=== PATIENT | male | born 1945 | race Caucasian/White ===

== ENCOUNTER 2022-01-12 20:53 | Inpatient (IN) | payer MEDICARE, BC ==
[~2022-01-12] VITALS: Ht 167.6 cm; Wt 98.9 kg
[2022-01-12 22:09] LABS: MEAN CORPUSCULAR HEMOGLOBIN 31.6 uug (23.8-33.4); MEAN CORPUSCULAR VOLUME 94.6 fL (73.0-96.2); PLATELET COUNT (AUTO) 306 K/uL (152-348)
[2022-01-12 22:25] LABS: CARBON DIOXIDE 22 mmol/L (21-32); CHLORIDE 102 mmol/L (98-107); CREATININE 1.6 mg/dL (0.6-1.3); GLUCOSE 141 mg/dL (74-106); POTASSIUM 3.9 mmol/L (3.5-5.1); UREA NITROGEN, BLOOD 38 mg/dL (7-18)
[2022-01-12 22:30] LABS: ALANINE AMINOTRANSFERASE 24 U/L (16-63); ALKALINE PHOSPHATASE 66 U/L (50-136); ASPARTATE AMINOTRANSFERASE 6 U/L (15-37); BILIRUBIN,DIRECT 0.1 mg/dL (0.0-0.2); BILIRUBIN,TOTAL 0.3 mg/dL (0.2-1.0)
[2022-01-13] MEDS ORDERED: ALLO100T PO (00:23)
[2022-01-13] MEDS ORDERED: ERGO400C PO (00:23)
[2022-01-13] MEDS ORDERED: BICA50TA49 PO (00:23)
[2022-01-13] MEDS ORDERED: METH1TAB69 PO (00:23)
[2022-01-13] MEDS ORDERED: OXYB5TAB16 PO (00:23)
[2022-01-13] MEDS ORDERED: TAMS-3 PO (00:23)
[2022-01-13] MEDS ORDERED: PIPERACILLIN SODIUM/TAZOBACTAM 3.375 G in IV DEXTROSE 5% 50 ML IV ONE (01:30)
[2022-01-13] MEDS ORDERED: IV NS 1000 ML 1,000 ML IV ONE (01:30)
[2022-01-13] MEDS ORDERED: PIPERACILLIN/TAZOBACTAM/D5W 50 ML IV ONE (01:35)
[2022-01-13 01:47] LABS: HEMATOCRIT 31.5 % (36.7-47.1)
--- NOTE | 2022-01-13 02:20 | NUR ---
Called [facility] for panel call
[2022-01-13] MEDS: IV NORMAL SALINE 1,000 ML IV SCH ×4 (02:30→21:59)
[2022-01-13] MEDS ORDERED: PANTOPRAZOLE SODIUM IV 40 MG in IV DEXTROSE 5% 100 ML IV SCH (02:30)
[2022-01-13] MEDS ORDERED: ACETAMINOPHEN 325 MG TABLET PO PRN (02:30)
[2022-01-13] MEDS ORDERED: MORPHINE SULFATE 2 MG/1 ML DISP.SYRIN IV PRN (02:30)
[2022-01-13] MEDS ORDERED: ONDANSETRON 4 MG/2 ML VIAL IV PRN (02:30)
[2022-01-13] MEDS ORDERED: hydrALAZINE HCL 20 MG/1 ML VIAL IV PRN (02:30)
--- NOTE | 2022-01-13 02:30 | NUR ---
Patient has been accepted by Dr Curtis
--- NOTE | 2022-01-13 02:31 | NUR ---
Called for bed. Spoke with Colby RN - charge nurse. Patient will be transfered to TELE room 309
--- NOTE | 2022-01-13 03:20 | NUR ---
report given to Kristen BURNETT
--- NOTE | 2022-01-13 03:50 | NUR ---
Pt. admitted to TELE room 309 , under care of Dr. Curtis Belongs List completed Kristen RN aware of patient's arrival
[2022-01-13] MEDS ORDERED: VANCOMYCIN IV 2,000 MG in IV DEXTROSE 5% 500 ML IV ONE (04:00)
[2022-01-13 04:04] VITALS: BP 125/55
[2022-01-13] MEDS: CEFEPIME HCL 1 G in IV DEXTROSE 5% 50 ML IV SCH ×3 (05:29→21:58)
--- NOTE | 2022-01-13 05:33 | NUR ---
Patient admission to room 309 per zion with diagnosis Syncope and rectal bleeding, history of prostate cancer, COPD, AAOX4, no sob, no c/o pain noted, skin intact, call light within easy reach. will continue to monitor.
[2022-01-13] MEDS ORDERED: OXYB10TA4 PO (06:02)
[2022-01-13] MEDS ORDERED: VANCOMYCIN 1000 MG VIAL ONE (06:05)
[2022-01-13] MEDS ORDERED: CEFEPIME HCL 1 G VIAL ONE (06:06)
[2022-01-13] MEDS ORDERED: PANTOPRAZOLE SODIUM 40 MG VIAL ONE (06:06)
[2022-01-13 07:17] LABS: HEMATOCRIT 28.2 % (36.7-47.1)
[2022-01-13] MEDS: OXYBUTYNIN XL 5 MG TABSR PO SCH ×2 (09:00→09:01)
[2022-01-13] MEDS ORDERED: TAMSULOSIN HCL 0.4 MG CAP.SR.24H PO SCH (09:00)
[2022-01-13] MEDS: BICALUTAMIDE 50 MG TABLET PO SCH ×2 (09:00→09:02)
[2022-01-13] MEDS ORDERED: OXYBUTYNIN CHLORIDE 5 MG TABLET PO SCH (09:00)
[2022-01-13] MEDS: CHOLECALCIFEROL 400 UNITS TABLET PO SCH ×2 (09:00→09:02)
[2022-01-13] MEDS ORDERED: VANCOMYCIN IV 1,000 MG in IV DEXTROSE 5% 250 ML IV SCH (09:00)
[2022-01-13] MEDS: ALLOPURINOL 100 MG TABLET PO SCH ×2 (09:00→09:02)
[2022-01-13] MEDS: PANTOPRAZOLE SODIUM 40 MG VIAL IV SCH (09:02)
--- NOTE | 2022-01-13 09:05 | NUR ---
Received patient sleeping in bed. patient is NPO status. Therefore, PO meds weren't administered. No pain, no distress were verbalized by the patient. Will continue to monitor.
[2022-01-13 11:50] LABS: HEMATOCRIT 27.9 % (36.7-47.1)
[2022-01-13 11:52] VITALS: BP 112/52
--- NOTE | 2022-01-13 12:59 | NUR ---
Patient is on clear liquids now by Dr Girma Becerra. Patient just had a BM and it was all bloody again.
[2022-01-13 13:40] LABS: HEMATOCRIT 27.9 % (36.7-47.1); MEAN CORPUSCULAR HEMOGLOBIN 31.6 uug (23.8-33.4); MEAN CORPUSCULAR VOLUME 95.2 fL (73.0-96.2); PLATELET COUNT (AUTO) 219 K/uL (152-348)
[2022-01-13 16:25] VITALS: BP 147/57
[2022-01-13 19:35] LABS: HEMATOCRIT 27.4 % (36.7-47.1)
[2022-01-13 20:00] VITALS: BP 111/57
[2022-01-13] MEDS ORDERED: MELATONIN 3 MG TABLET PO PRN ×2 (21:15→21:30)
[2022-01-13] MEDS: TAMSULOSIN HCL 0.4 MG CAP.SR.24H PO SCH (21:54)
[2022-01-14 00:02] VITALS: BP 108/51
[2022-01-14 01:26] LABS: *BILIRUBIN,URIN NEGATIVE (NEGATIVE); *BLOOD, URINE NEGATIVE (NEGATIVE); *CLARITY,URINE CLEAR (CLEAR); *COLOR,URINE LIGHT YELLOW (YELLOW); *KETONES,URINE NEGATIVE (NEGATIVE); *UROBILINOGEN,URINE 0.2 E.U./dl (NORMAL); LEUKOCYTE ESTERASE ,URINE NEGATIVE (NEGATIVE); NITRITE, URINE NEGATIVE (NEGATIVE); PH,URINE 5.5 (5.0-8.0); UGLUCOSE NEGATIVE (NEGATIVE)
[2022-01-14 04:00] VITALS: BP 112/60
[2022-01-14] MEDS: CEFEPIME HCL 1 G in IV DEXTROSE 5% 50 ML IV SCH ×3 (05:54→21:12)
[2022-01-14 06:48] LABS: MEAN CORPUSCULAR HEMOGLOBIN 32.3 uug (23.8-33.4); MEAN CORPUSCULAR VOLUME 94.7 fL (73.0-96.2); PLATELET COUNT (AUTO) 200 K/uL (152-348)
[2022-01-14 07:04] LABS: BILIRUBIN,TOTAL 0.5 mg/dL (0.2-1.0); CREATININE 1.2 mg/dL (0.6-1.3); PHOSPHOROUS 3.5 mg/dL (2.5-4.9); POTASSIUM 4.2 mmol/L (3.5-5.1); TOTAL PROTEIN, SERUM 6.2 g/dL (6.4-8.2); VANCOMYCIN,RANDOM 7.6 ug/mL (18.0-26.0)
[2022-01-14] MEDS: IV NORMAL SALINE 1,000 ML IV SCH ×2 (08:38→18:04)
[2022-01-14] MEDS: ALLOPURINOL 100 MG TABLET PO SCH (08:40)
[2022-01-14] MEDS: CHOLECALCIFEROL 400 UNITS TABLET PO SCH (08:40)
[2022-01-14] MEDS: OXYBUTYNIN XL 5 MG TABSR PO SCH (08:40)
[2022-01-14] MEDS: BICALUTAMIDE 50 MG TABLET PO SCH (08:42)
[2022-01-14] MEDS: PANTOPRAZOLE SODIUM 40 MG VIAL IV SCH (08:43)
[2022-01-14] MEDS ORDERED: VANCOMYCIN IV 1,500 MG in IV DEXTROSE 5% 500 ML IV SCH (09:00)
[2022-01-14 11:15] LABS: HEMATOCRIT 24.7 % (36.7-47.1)
[2022-01-14] MEDS: METRONIDAZOLE 500 MG/NS 100ML 500 MG in PREMIXED 1 EACH IV SCH ×2 (11:30→18:04)
[2022-01-14 12:02] VITALS: BP 121/67
[2022-01-14] MEDS ORDERED: GOLYTELY 4000 ML BOTTLE PO ONE (13:30)
[2022-01-14 15:47] VITALS: BP 121/59
--- NOTE | 2022-01-14 16:08 | NUR ---
patient did not have bloody stool today. Dr Fields ordered colonoscopy tomorrow. however patient son said that per dr benitez colonoscopy is not good at this time due to acute diverticulitis, son wanted this senior writer to clarify and not to do colonoscopy tomorrow. dr fields made aware about son request, dr fields cancelled the procedure for tomorrow. dr benitez aware as well.
--- NOTE | 2022-01-14 18:26 | NUR ---
patient had bloody stool x1. no acute distress noted
--- NOTE | 2022-01-14 19:27 | NUR ---
SON REFUSED TO HAVE COLONOSCOPY AT THIS TIME
[2022-01-14 20:00] VITALS: BP 124/59
[2022-01-14] MEDS: TAMSULOSIN HCL 0.4 MG CAP.SR.24H PO SCH (21:15)
[2022-01-15] MEDS: METRONIDAZOLE 500 MG/NS 100ML 500 MG in PREMIXED 1 EACH IV SCH (02:58)
[2022-01-15 04:00] VITALS: BP 110/50
[2022-01-15] MEDS: IV NORMAL SALINE 1,000 ML IV SCH (04:30)
[2022-01-15 04:53] LABS: HEMATOCRIT 25.1 % (36.7-47.1); MEAN CORPUSCULAR HEMOGLOBIN 32.1 uug (23.8-33.4); MEAN CORPUSCULAR VOLUME 94.4 fL (73.0-96.2); PLATELET COUNT (AUTO) 188 K/uL (152-348)
[2022-01-15 04:58] LABS: CARBON DIOXIDE 26 mmol/L (21-32); CHLORIDE 105 mmol/L (98-107); CREATININE 1.2 mg/dL (0.6-1.3); GLUCOSE 118 mg/dL (74-106); POTASSIUM 3.8 mmol/L (3.5-5.1); UREA NITROGEN, BLOOD 15 mg/dL (7-18)
[2022-01-15] MEDS: CEFEPIME HCL 1 G in IV DEXTROSE 5% 50 ML IV SCH (05:21)
--- NOTE | 2022-01-15 06:53 | NUR ---
pt rested well in between care; BM x1 brownish and mucoid small in amount; assisted to meet hygiene needs; continue to monitor;; continue plan of care.
[2022-01-15] MEDS: ALLOPURINOL 100 MG TABLET PO SCH (09:28)
[2022-01-15] MEDS: CHOLECALCIFEROL 400 UNITS TABLET PO SCH (09:28)
[2022-01-15] MEDS: PANTOPRAZOLE SODIUM 40 MG VIAL IV SCH (09:28)
[2022-01-15] MEDS: OXYBUTYNIN XL 5 MG TABSR PO SCH (09:28)
[2022-01-15] MEDS: BICALUTAMIDE 50 MG TABLET PO SCH (09:37)
[2022-01-15 10:43] LABS: HEMATOCRIT 25.4 % (36.7-47.1)
--- NOTE | 2022-01-15 11:45 | NUR ---
PATIENT HAS ORDER FOR DISCHARGE AND HIS IV IS POSITIONAL IV PUMP IS BEEPING ASKED THE DOCTOR IF MIDLINE SHOULD BE INSERTED TO CONTINUE THE IV ORDERED BUT MD STATED TO JUST DISCONTINUE THE IVF AND THE IV ANTIBIOTICS BECAUSE HE CHANGED IT TO ORAL AND NOTED.
[2022-01-15 11:57] VITALS: BP 137/67
--- NOTE | 2022-01-15 13:30 | NUR ---
PER THE EYE CLINIC MANAGER STATED THAT PATIENTS SON DOES NOT WANT [facility] HAS OTHER PREFERENCES SO THE EYE CLINIC MANAGER IS CURRENTLY SENDING INQUIRIES TO THESE SNF TO SEE IF THEY HAVE A BED AVAILABLE.
--- NOTE | 2022-01-15 14:06 | NUR ---
CALLED DR LAUREEN VIRAMONTES SINCE PATIENT IS NOT SET TO LEAVE AND HIS IV IS NOT FUNCTIONAL WHAT HE WANTED ME TO DO WITH HIS CURRENT ORDER FOR IV ATB AND HE STATED TO DISCONTINUE TO IV ATB AND START THE ORAL ATB HE ORDERED FOR HIS DISCHARGE AND NOTED.
[2022-01-15] MEDS ORDERED: METRONIDAZOLE 500 MG TABLET PO SCH (14:30)
[2022-01-15] MEDS ORDERED: CIPROFLOXACIN HCL 250 MG TABLET PO SCH (15:00)
--- NOTE | 2022-01-15 15:15 | NUR ---
PATIENTS SON BISHNU HERE AND STATED THAT HE WILL PREFER TO TAKE PATIENT HOME INSTEAD OF THE DETENTION TRAIN CALLER AWARE WILL CALL DR GARDUNO FOR OUT PATIENT PRESCRIPTIONS TO PATIENT OWN PHARMACY.
[2022-01-15 15:48] VITALS: BP 136/64
--- NOTE | 2022-01-15 17:45 | NUR ---
CALLED THE [facility]Y INSTRUCTED BY PATIENTS SON AND ORDERED HIS MEDICATION SPOKE WITH SHREYAS.
--- NOTE | 2022-01-15 18:00 | NUR ---
PATIENT DISCHARGED PICKED UP BY HIS SON BISHNU AND HE WAS INSTRUCTED TO CONTINUE WITH CLEAR LIQUIDS DIET ORDERED AND FOLLOW UP WITH HIS PRIMARY DOCTOR FOR COLONOSCOPY OUT PATIENT AND TO HAMMER SMITH PATIENTS ANTIBIOTICS AND PROTONIX AT THE [facility] AND HE EXPRESSED [id number]
[2022-01-16] MEDS ORDERED: PANTOPRAZOLE SODIUM 40 MG TABLET.DR PO SCH (07:00)
== END 2022-01-15 17:55 | DRG 377 ==
LOC: ER 20:59 → TELE3 01-13 02:25 → MEDSURG3 01-14 10:30
DX: K57.33 Diverticulitis of large intestine without perforation or abscess with bleeding (principal); N17.0 Acute kidney failure with tubular necrosis; I95.1 Orthostatic hypotension; C61 Malignant neoplasm of prostate; E88.09 Other disorders of plasma-protein metabolism, not elsewhere classified; Z90.5 Acquired absence of kidney; J44.9 Chronic obstructive pulmonary disease, unspecified; Z20.822 Contact with and (suspected) exposure to COVID-19; Z87.442 Personal history of urinary calculi; Z92.3 Personal history of irradiation; D63.8 Anemia in other chronic diseases classified elsewhere; D50.9 Iron deficiency anemia, unspecified
CPT/HCPCS: 36415; 70450; 71045; 83605; 84100; 84484; 85018; 85025; 85730; 86850; 86900; 86901; 87040; 87086; 93005; 93307; A4663; C9113; G0378; J0692; J2543; J3370; J3490; J7040; J7050; J7060; J8499